=== PATIENT | male | born 1930 | race Caucasian/White ===

== ENCOUNTER 2017-08-21 13:30 | Inpatient (IN) | payer MEDICARE, OTHER ==
[~2017-08-21] VITALS: Ht 180.3 cm; Wt 79.4 kg
[2017-08-21 13:39] VITALS: BP 122/63
[2017-08-21] MEDS ORDERED: OXYBUTYNIN 5 MG5 M2 PO (13:43)
[2017-08-21] MEDS ORDERED: ASPIRIN81 M2 PO (13:43)
[2017-08-21] MEDS ORDERED: PROPRANOLOL 1010 MG PO (13:43)
[2017-08-21 14:13] LABS: ABSOLUTE EOSINOPHILS 0.1 thou/uL (0.0-0.7); ABSOLUTE LYMPHOCYTES 1.6 thou/uL (0.8-5.3); ABSOLUTE MONOCYTES 0.7 thou/uL (0.0-1.2); ABSOLUTE NEUTROPHILS 3.5 thou/uL (1.6-8.1); BASOPHILS 0.4 %; EOSINOPHILS 1.6 %; HEMATOCRIT 28.8 % (42.0-52.0); HEMOGLOBIN 9.9 gm/dL (14.0-18.0); LYMPHOCYTES 27.8 %; MCH 33.2 pg (26.0-34.0); MCHC 34.5 g/dL (28.0-37.0); MCV 96.4 fL (80.0-100.0); MONOCYTES 11.2 %; MPV 8.3 fl. (7.2-11.1); NUCLEATED RBCS 0 /100WBC; PLATELET COUNT* 225 thou/uL (150-400); RBC 2.99 mil/uL (4.50-6.00); RDW-CV 13.4 % (10.5-14.5); WBC 5.9 thou/uL (4.0-11.0)
[2017-08-21 14:23] LABS: CREATININE 1.3 mg/dL (0.6-1.3); POTASSIUM 3.9 mmol/L (3.5-5.1)
[2017-08-21 14:25] LABS: APTT 23.8 Seconds (25.0-31.3); INR 1.1; PROTIME 10.7 Seconds (9.20-11.50)
[2017-08-21 14:31] LABS: ALBUMIN 3.3 g/dL (3.4-5.0); TOTAL BILIRUBIN 0.3 mg/dL (<0.1-1.0)
--- NOTE | 2017-08-21 15:38 | EKG ---
[place] [address] ELECTROCARDIOGRAM REPORT Name: JAGDISH WRIGHT Room: [place] [address] ADM IN .R.#: [id number] Admission: 08/21/17 Attend Phys: German Smith Discharge: Date of : [birth year] Report #: [id number] THIS REPORT FOR: //name// [facility] ED Test Date: 2017-08-21 Test Time: 14:14:43 Pat Name: JAGDISH WRIGHT Department: Room: [facility] Gender: M Legal Records Clerk: ED : 1930 Requested By: Jaskaran Weiss Order Number: [id number] MD: Demar De Jesus Measurements Intervals [place] Rate: 94 P: 35 NC: 193 QRS: 2 QRSD: 127 T: -19 QT: 377 QTc: 472 Interpretive Statements Sinus rhythm No previous ECG available for comparison Electronically Signed On 08-21-2017 15:38:26 ASIAN ART CURATOR by Demar De Jesus [email or web address] <ELECTRONICALLY SIGNED> By: Demar De Jesus MD, [facility] 08/21/17 1538 1414 1414 Demar De Jesus MD, FACC /EPI
[2017-08-21 16:46] VITALS: BP 133/78
[2017-08-21] MEDS ORDERED: LIPITOR 20 MG T20 M1 PO (17:26)
[2017-08-21] MEDS ORDERED: RANITIDINE 150150 M1 PO (17:27)
[2017-08-21 18:20] LABS: HEMATOCRIT 26.1 % (42.0-52.0)
--- NOTE | 2017-08-21 19:05 | NUR ---
PT UP FROM ER WITH BLEEDING IN STOOL AT HOME LEIDY RAZA STATED PT SAID BLOOD COVERED TOILET AT HOME AND COUGH PERSISTENT FOR AWHILE NOW PT IS A POOR HISTORIAN UP SBA PALE SKIN IV FLUIDS STARTED AT 60ML/H PLAN TO PREP FOR COLONSCOPY TOMORROW HGB AT 9.0 NOW NO PAIN OR DISCOMFORT NSR ON THE MONITOR
[2017-08-21 20:00] VITALS: BP 150/94
[2017-08-21 22:00] LABS: HEMATOCRIT 25.1 % (42.0-52.0); HEMOGLOBIN 8.6 gm/dL (14.0-18.0)
[2017-08-22 00:08] VITALS: BP 158/82
[2017-08-22 02:07] LABS: HEMATOCRIT 22.6 % (42.0-52.0); HEMOGLOBIN 7.7 gm/dL (14.0-18.0)
[2017-08-22 04:05] VITALS: BP 118/57
--- NOTE | 2017-08-22 04:54 | NUR ---
ASSESSMENT AND VITALS COMPLETED CHARTED, VSS. 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 PATIENT PROGRESSING TOWARDS GOALS: PATIENT TOLERATING GOLYTLY PREP IN ANTICIPATION FOR COLONOSCOPY. GI TO SEE PATIENT THIS AM. PATIENT NPO AT THIS TIME. PATIENT CONTINUES TO HAVE BLOODY STOOLS AND HGB TRENDING DOWN, LATEST 7.7. H&H TO BE REDRAWN AT 0600. HOURLY ROUNDING OBSERVED. CALL LIGHT WITHIN REACH.
[2017-08-22 06:01] LABS: HEMATOCRIT 23.8 % (42.0-52.0); HEMOGLOBIN 8.2 gm/dL (14.0-18.0)
[2017-08-22 06:09] LABS: CREATININE 1.1 mg/dL (0.6-1.3); POTASSIUM 3.5 mmol/L (3.5-5.1)
[2017-08-22 09:30] VITALS: BP 160/80
[2017-08-22 10:16] LABS: HEMATOCRIT 23.2 % (42.0-52.0); HEMOGLOBIN 7.9 gm/dL (14.0-18.0)
[2017-08-22 12:21] VITALS: BP 118/71
--- NOTE | 2017-08-22 13:50 | NUR ---
ASSUMED PT CARE AT 0700 PT IS UP AD BLADIMIR DENIES PAIN OR SOA, PT IS SR ON MONITOR, PT DID BOWEL PREP LAST NIGHT FOR POSSIBLE COLONOSCOPY GI SAW PT AND ORDERED TO KEEP PT ON CLEAR LIQUIDS AND SCHEDULED COLONOSCOPY FOR TOMORROW, PT IS NOT A FALL RISK, PT IV FLUIDS DISCONTINUED, WILL CONTINUE TO MONITOR
[2017-08-22 14:23] LABS: HEMATOCRIT 22.2 % (42.0-52.0); HEMOGLOBIN 7.6 gm/dL (14.0-18.0)
[2017-08-22 16:13] VITALS: BP 157/84
[2017-08-22 17:56] LABS: HEMATOCRIT 22.8 % (42.0-52.0); HEMOGLOBIN 7.9 gm/dL (14.0-18.0)
[2017-08-22 20:57] VITALS: BP 135/68
[2017-08-22 22:01] LABS: HEMATOCRIT 21.8 % (42.0-52.0); HEMOGLOBIN 7.6 gm/dL (14.0-18.0)
[2017-08-23] VITALS: BP 157/74
[2017-08-23 02:00] LABS: HEMATOCRIT 20.6 % (42.0-52.0); HEMOGLOBIN 7.1 gm/dL (14.0-18.0)
--- NOTE | 2017-08-23 03:16 | NUR ---
Pt reports feeling "ok." VSS. NPO since midnight. Pt refused ordered dose of bisocodyl tabs and mag citrate stating that he has been having clear stools since his bowel prep from previous day. Pt states he had a bowel movement earlier this evening that he has not flushed. Water in toilet noted to be lightly tinged with what was likely some dark green tinged stool. I informed patient that the additional laxatives were ordered to assure a good bowel prep for the colonoscopy, and that refusal of these meds could prevent a a clear visual for the physician during the procedure; which could lead to a repeat of the procedure. He states he will "take his chances." Will continue to monitor.
[2017-08-23 04:07] VITALS: BP 152/75
[2017-08-23 06:19] LABS: ABSOLUTE EOSINOPHILS 0.1 thou/uL (0.0-0.7); ABSOLUTE LYMPHOCYTES 1.7 thou/uL (0.8-5.3); ABSOLUTE MONOCYTES 0.5 thou/uL (0.0-1.2); ABSOLUTE NEUTROPHILS 1.8 thou/uL (1.6-8.1); BASOPHILS 0.5 %; HEMATOCRIT 22.3 % (42.0-52.0); HEMOGLOBIN 7.6 gm/dL (14.0-18.0); LYMPHOCYTES 41.6 %; MCH 32.7 pg (26.0-34.0); MCV 96.1 fL (80.0-100.0); MONOCYTES 12.7 %; MPV 7.9 fl. (7.2-11.1); NUCLEATED RBCS 0 /100WBC; PLATELET COUNT* 201 thou/uL (150-400); POLYS 42.2 %; RBC 2.32 mil/uL (4.50-6.00); RDW-CV 13.1 % (10.5-14.5); WBC 4.2 thou/uL (4.0-11.0)
[2017-08-23 06:29] LABS: CALCIUM 8.1 mg/dL (8.5-10.1); CREATININE 1.1 mg/dL (0.6-1.3); POTASSIUM 3.4 mmol/L (3.5-5.1)
[2017-08-23 07:45] VITALS: BP 147/82
[2017-08-23 11:30] VITALS: BP 130/77
[2017-08-23 12:06] LABS: HEMATOCRIT 22.3 % (42.0-52.0); HEMOGLOBIN 7.7 gm/dL (14.0-18.0)
[2017-08-23 16:03] VITALS: BP 147/82
--- NOTE | 2017-09-01 16:26 | CON ---
[address] [address] CONSULTATION Name: JAGDISH WRIGHT Room: [address] IN M.R.#: [id number] Admission: 08/21/17 Attend Phys: German Smith Discharge: 08/23/17 Date of : [birth year] Report #: [id number] THIS REPORT FOR: //name// CC: FAM unknown Getachew Dupree ID CLINIC DATE OF SERVICE: 08/22/2017 INDICATION FOR CONSULT: Hematochezia, change in bowel habits and constipation. HISTORY OF PRESENT ILLNESS: This is an 86-year-old male who presented to hospital with hematochezia. The patient reports that for the past year, his bowel habits have changed and before that he used to be very regular and after a bowel movement in the morning, would feel that he has evacuated his system. Now, it takes him 3-4 times, and sometimes, he may not have bowel movements for several days. Even though he initially had reported loose stools for the past day, CAT scan had revealed constipation with a lot of stool in the colon. The patient currently denies any abdominal pain, nausea, vomiting, hematochezia, melena. He reports that he was drinking GoLYTELY overnight and had multiple loose stools. PAST MEDICAL HISTORY: Significant for history of gastroesophageal reflux disease, hypertension, dyslipidemia, history of prostate CA with radiation. ALLERGIES: No known drug allergy. MEDICATIONS: Please refer to hospital MAR. SOCIAL HISTORY: The patient lives alone. Denies tobacco or alcohol use. FAMILY HISTORY: Noncontributory. PHYSICAL EXAMINATION: VITAL SIGNS: Reveal blood pressure of 118/57, respirations 18, pulse 92, temperature 98.9. LUNGS: Clear. CARDIOVASCULAR: Regular. ABDOMEN: Soft, nontender, nondistended. Bowel sounds are positive. NEUROLOGIC: The patient is alert, oriented x 3. There is no focal neurologic deficit. LABORATORY DATA: Reveals sodium of 141, potassium 3.5, BUN is 18, creatinine 1.1, with glucose of 112. AST is 14, calcium 8.0. Liver function tests are all within normal limits. Total protein is 6, albumin 3.0. PSA is 4.4. INR 1.1. [place] [address] CONSULTATION Name: ADRIANAJAGDISH Rishabh Room: [address]#: [id number] Admission: 08/21/17 Attend Phys: German Smith Discharge: 08/23/17 Date of : [birth year] Report #: [id number] WBC is 5.9, with hemoglobin of 8.2 and platelet of 225. IMAGING: As described above. ASSESSMENT AND PLAN: The patient with a history of colonoscopy dating back to 5-10 years ago, which he believes it was negative. He presents with 1 year of change in bowel habits and hematochezia. He is also found to be anemic with hemoglobin around mid 8s. We will go ahead and perform a colonoscopy to further evaluate his bowel habit changes and rule out malignancy. The patient is agreeable with plan. <ELECTRONICALLY SIGNED> By: Cholo Padilla MD 09/01/17 1626 0814 [id number] Padilla MD /nt
== END 2017-08-23 17:06 | disposition home or self-care (01) | DRG 378 ==
LOC: M.ERS 13:30 → M.TBA-ER 15:08 → M.2W 15:08
PROVIDERS: Internal Medicine Gastroenterology; Physician Assistant; ADMIT Internal Medicine
PROC: 0DJD8ZZ Inspection of Lower Intestinal Tract, Via Natural or Artificial Opening Endoscopic (ICD-10-PCS; principal; 2017-08-23)
DX: K92.2 Gastrointestinal hemorrhage, unspecified (principal); D62 Acute posthemorrhagic anemia; I10 Essential (primary) hypertension; K21.9 Gastro-esophageal reflux disease without esophagitis; E78.5 Hyperlipidemia, unspecified; E78.00 Pure hypercholesterolemia, unspecified; K59.00 Constipation, unspecified; N32.81 Overactive bladder; Z82.49 Family history of ischemic heart disease and other diseases of the circulatory system; Z85.46 Personal history of malignant neoplasm of prostate; Z90.49 Acquired absence of other specified parts of digestive tract